=== PATIENT | female | born 1985 | race Caucasian/White ===

== ENCOUNTER 2017-10-30 15:20 | Outpatient (CLI) | payer BC | END 2017-10-30 15:21 | disposition home or self-care (01) | LOC: BICULT 15:20 | PROVIDERS: ATTEND Family Medicine | DX: Z03.89 Encounter for observation for other suspected diseases and conditions ruled out (principal) | CPT/HCPCS: 36415; 80053; 85025 ==

== ENCOUNTER 2018-05-09 06:57 | Outpatient (CLI) | payer OTHER ==
--- NOTE | 2018-05-09 08:02 | ULT ---
SONOGRAM ABDOMEN COMPLETE: HISTORY: Upper abdomen pain. FINDINGS: Gallbladder has a normal appearance without evidence of stones. The common duct is 0.4 cm. Liver un remarkable without focal mass or intrahepatic biliary dilatation. No free fluid. The spleen, kidney s, and visualized portions of the abdominal aorta, IVC, and pancreas are unremarkable. IMPRESSION: Normal abdominal sonogram. POS: [facility]
--- NOTE | 2018-05-09 08:28 | ULT ---
PELVIC SONOGRAM TRANSABDOMINAL AND TRANSVAGINAL IMAGING WITH DUPLEX EVALUATION: History: Pelvic pain. FINDINGS: Urinary bladder is decompressed. Uterus has a heterogeneous echo texture and is 6.8 cm. Endometrium i s 0.2 cm. No free fluid. Right ovary is 2.8 cm and left is 2.4 cm. Good color and spectral doppler flow of the left ovary is c onfirmed but difficult to visualize the right ovary. IMPRESSION: No significant abnormalities are demonstrated. POS: [facility]
== END 2018-05-09 06:58 | disposition home or self-care (01) ==
LOC: BICULT 06:57
PROVIDERS: ATTEND Family Medicine
DX: R10.84 Generalized abdominal pain (principal)
CPT/HCPCS: 76700; 76856